=== PATIENT | male | born 1935 | race Caucasian/White ===

== ENCOUNTER 2017-03-14 08:00 | Outpatient (CLI) | payer MEDICARE, BC | END 2017-03-14 08:01 | disposition home or self-care (01) | LOC: BICMRI 08:00 | PROVIDERS: ATTEND Orthopaedic Surgery | DX: M25.512 Pain in left shoulder (principal); M25.511 Pain in right shoulder; S46.211A Strain of muscle, fascia and tendon of other parts of biceps, right arm, initial encounter; M75.101 Unspecified rotator cuff tear or rupture of right shoulder, not specified as traumatic; Z98.890 Other specified postprocedural states; M19.012 Primary osteoarthritis, left shoulder ==

== ENCOUNTER 2018-04-06 10:46 | Outpatient (CLI) | payer MEDICARE, BC ==
--- NOTE | 2018-04-06 13:50 | RAD ---
LUMBAR SPINE 4 VIEWS: HISTORY: M54.16, lumbar radiculopathy, low back pain. COMPARISON: 12/21/2015. FINDINGS: There is moderate levoscoliosis of the lumbar vertebral column. Significant anterolisthesis of L5 on S1 approximating 1.9 cm with bilateral pars defects. There is generalized disk-osteophytosis and se josephine facet arthrosis. No significant abnormal translation between flexion and extension. No evidenc e for acute fracture. Stable from prior study. IMPRESSION: Severe stable anterolisthesis of L5 on S1. Extensive spondylosis. Levoscoliosis. POS: OFF
== END 2018-04-06 10:47 | disposition home or self-care (01) ==
LOC: TBSIIMAG 10:46
PROVIDERS: ATTEND Neurological Surgery
DX: M47.26 Other spondylosis with radiculopathy, lumbar region (principal); M43.17 Spondylolisthesis, lumbosacral region; M41.9 Scoliosis, unspecified
CPT/HCPCS: 72110

== ENCOUNTER 2018-06-08 00:05 | Outpatient (CLI) | payer MEDICARE, BC ==
[2018-06-08 10:13] LABS: Hemoglobin 14.8 g/dL (14.0-18.0); Mean Corpuscular HGB CONC 32.6 g/dL (32.0-36.0); Mean Corpuscular Hemoglobin 32.5 pg (27.0-31.0); Mean Corpuscular Volume 99.7 fL (78.0-98.0); Mean Platelet Volume 6.7 fL (7.4-10.4); Platelet Count 221 thou/uL (130-400); RBC Distribution Width 12.1 % (11.5-14.5); Red Blood Cell (RBC) Count 4.54 mill/uL (4.70-6.10); White Blood Cell (WBC) Count 5.7 thou/uL (4.8-10.8)
[2018-06-08 10:19] LABS: INR-International Normal Ratio 1.1; PTT 31.1 SEC (22.9-36.1); Prothrombin Time 14.4 SEC (12.0-14.7)
[2018-06-08 10:31] LABS: Anion Gap 12 mmol/L (10-20); BUN (Urea Nitrogen) 16 mg/dL (8.4-25.7); Calc. Creatinine Clearance 0 mL/min (70-130); Calcium 9.7 mg/dL (7.8-10.44); Carbon Dioxide 30 mmol/L (23-31); Chloride 104 mmol/L (98-107); Estimated GFR-MDRD 81; Glucose 88 mg/dL (83-110); Potassium 4.7 mmol/L (3.5-5.1); Sodium 141 mmol/L (136-145)
== END 2018-06-08 00:06 | disposition home or self-care (01) ==
LOC: LABBT 00:05
PROVIDERS: ATTEND Internal Medicine Cardiovascular Disease
DX: Z01.812 Encounter for preprocedural laboratory examination (principal); I48.91 Unspecified atrial fibrillation
CPT/HCPCS: 80048; 85027; 85610; 85730

== ENCOUNTER 2018-06-15 07:03 | Day surgery (SDC) | payer MEDICARE, BC ==
[2018-06-08 09:20] VITALS: BMI 25.4
[2018-06-15] MEDS ORDERED: PROPOFOL 40 ML ONE (08:55)
--- NOTE | 2018-06-15 13:30 | ECHO ---
CARDIOLOGY PROCEDURE NOTE: Date: 06/15/18 PROCEDURE: Transesophageal echocardiogram. REASON FOR PROCEDURE: Mr. Neal is an 82-year-old gentleman with history of paroxysmal atrial fibrillation. Prior ablation in September 2012 and touchup ablation in April 2018 in the setting of a Watchman device placement. He is here for 6 weeks post implant GEMMA to evaluate the Watchman closure. PROCEDURE DETAILS: The patient received propofol from the anesthesia specialist. After adequate level of sedation achie ed, a standard transesophageal echocardiogram probe was placed into the esophagus without difficulty. The patient tolerated the procedure well. No complications noted. FINDINGS: Left atrium is mildly enlarged. Left atrial appendage is visualized with appropriately positioned Ty chman device in place. There is a small leak adjacent to the anterior surface of the Watchman device seen. There is some echo lucency behind the Watchman noted as well. One of two pulmonary veins were visualized well. Intraatrial septum free of defect. Mitral valve has trace to mild regurgitation only. Aortic valve has some thickening, but no stenosis. Aortic valve has mild to moderate regurgitation. Tricuspid valve has trace regurgitation. Pulmonic valve not well vis ualized. Pericardial space is without effusion. Left ventricle with normal systolic function and toshia nate size overall normal. No septal defects are seen in the atrium or ventricle. Visualized portion of the ascending aorta is somewhat dilated at 4.0 cm horizontal diameter. There is some adherent athero ma noted in the descending aorta. CONCLUSION: 1. Adequately positioned Watchman device but with a small leak, approximately 0.3 cm diameter, is se en. 2. Normal LV systolic function. 3. No pericardial effusion. 4. Mild to moderate aortic regurgitation. 5. Mild mitral regurgitation seen only. PLAN: Continue oral anticoagulant for the next 2 months at least. I would like to have him undergo a repeat GEMMA around that time and decide whether he can transfer back to aspirin and Plavix regimen for remai nder of the 6 months.
[2018-06-15] MEDS ORDERED: PROPOFOL 200 MG/20 ML VIAL ONE (15:23)
== END 2018-06-15 10:15 | disposition home or self-care (01) ==
LOC: CCL 07:03
PROVIDERS: ATTEND Internal Medicine Cardiovascular Disease
PROC: B246ZZ4 Ultrasonography of Right and Left Heart, Transesophageal (ICD-10-PCS; principal; 2018-06-15)
DX: I48.0 Paroxysmal atrial fibrillation (principal); I35.1 Nonrheumatic aortic (valve) insufficiency; I34.0 Nonrheumatic mitral (valve) insufficiency; I10 Essential (primary) hypertension; E78.5 Hyperlipidemia, unspecified; Z88.1 Allergy status to other antibiotic agents; Z79.01 Long term (current) use of anticoagulants; Z79.899 Other long term (current) drug therapy
CPT/HCPCS: 93312; J2704

== ENCOUNTER 2019-03-11 10:55 | Outpatient (CLI) | payer MEDICARE, BC ==
--- NOTE | 2019-03-11 11:21 | RAD ---
XR Lumbar Spine Min 4 View HISTORY: Low back pain. COMPARISON: 04/06/2018 study. FINDINGS: There is marked scoliotic change convex to the left. The bones appear slightly demineralize d. There is slight cupping to the endplates at the L2 and L3 levels. Marked disc narrowing at L5-S1 with spondylolisthesis is stable. There are marked degenerative facet changes of the lower lumbar spi ne and pars defect at L5-S1. The spondylolisthesis does not appear to significantly change between flexion and extension views. IMPRESSION: Scoliosis and arthritic changes spine. Essentially stable exam.
== END 2019-03-11 10:56 | disposition home or self-care (01) ==
LOC: BICRAD 10:55
PROVIDERS: ATTEND Neurological Surgery
DX: M54.5 Low back pain (principal); M41.9 Scoliosis, unspecified; M47.816 Spondylosis without myelopathy or radiculopathy, lumbar region
CPT/HCPCS: 72110

== ENCOUNTER 2019-04-19 10:37 | Outpatient (CLI) | payer MEDICARE, BC ==
--- NOTE | 2019-04-19 11:46 | MRI ---
MRI LUMBAR SPINE NONCONTRAST: HISTORY: Status post fall in 2016. Back pain. COMPARISON: None. FINDINGS: Heterogeneous marrow signal intensity of the lumbar vertebrae suggesting senescent change. There are type I and type II Modic changes at the T12-L1 disc space. There are bilateral pars defects at L5. Associated 1.2 cm of anterolisthesis of L5 upon S1. Visualized sacrum and iliac wings also demonstrat e heterogeneous T1 marrow signal intensity. There is appropriate signal intensity of the visualized paraspinal muscles and solid organs. Bilatera l parapelvic cysts are noted. Conus medullaris terminates at the mid L1 level. Beyond the type I Modic changes at T12-L1, no significant STIR hyperintensity. T12-L1:Severe loss of disc space height. Broad-based disc-osteophyte complex. Moderate central canal stenosis. Mild right and moderate to severe left neural foraminal narrowing. L1-L2:Adequate disc hydration. No significant posterior disc abnormality. Mild narrowing of both suba rticular zones secondary to disc material. Partial obscuration of bilateral traversing L4 nerve roots. Moderate right and moderate to severe left foraminal narrowing. L2-L3:Severe loss of disc space height. Broad-based disc bulge, ligament flavum thickening and facet hypertrophy result in mild central canal stenosis. Encroachment upon bilateral subarticular zones. There is mass effect without obscuration of bilateral traversing L3 nerve roots. Moderate to severe r ight and moderate left neural foraminal narrowing. L3-L4:Desiccation with moderate loss of disc space height. Broad-based disc bulge and central disc he rniation, ligament flavum thickening and facet hypertrophy result in mild central canal stenosis. Encroachment upon the bilateral subarticular zone with partial obscuration of the traversing bilatera l L4 nerve roots. There is fluid in the left facet joint. Moderate to severe right and moderate left neural foraminal narrowing. L4-L5:Adequate disc hydration without significant loss of disc space height. Broad-based disc bulge d oes make contact with the ventral thecal sac. Minimal encroachment upon bilateral subarticular zones without significant mass effect or obscuration of either traversing L5 nerve root. Moderate to severe right and moderate left foraminal narrowing predominantly due to ligamentum flavum thickening and facet hypertrophy. L5-S1:Severe loss of disc space height. Broad-based disc bulge does not cause any significant mass ef fect upon the thecal sac. Moderate to severe right and severe left foraminal narrowing predominantly due to spondylolisthesis. IMPRESSION: 1. Heterogeneous marrow signal intensity throughout the visualized vertebra suggesting senescent han ge. Marrow infiltrative process cannot be entirely excluded. Postcontrast imaging or bone scan if clinically warranted 2. Varying degrees of central canal stenosis and neural foraminal narrowing as detailed above. CODE T
== END 2019-04-19 10:38 | disposition home or self-care (01) ==
LOC: TBSIIMAG 10:37
PROVIDERS: ATTEND Neurological Surgery
DX: M43.16 Spondylolisthesis, lumbar region (principal); M48.061 Spinal stenosis, lumbar region without neurogenic claudication; R93.7 Abnormal findings on diagnostic imaging of other parts of musculoskeletal system; M48.07 Spinal stenosis, lumbosacral region
CPT/HCPCS: 72148

== ENCOUNTER → 2019-04-23 | Day surgery (SDC) | payer MEDICARE, BC ==
[2019-04-22 12:52] VITALS: BMI 25.4
[~2019-04-23] MED LIST: PROPOFOL 40 ML ONE
[2019-04-23 08:05] LABS: #Basophils 0.1 thou/uL (0.0-0.2); #Eosinphils 0.5 thou/uL (0.0-0.7); #Lymphocytes 1.7 thou/uL (1.20-3.40); #Monocytes 0.6 thou/uL (0.11-0.59); #Neutrophils 2.5 thou/uL (1.40-6.50); %Basophils 1.2 % (0.0-1.0); %Eosinophils 9.4 % (0.0-10.0); %Lymphocytes 31.1 % (21.0-51.0); %Monocytes 11.5 % (0.0-10.0); %Neutrophils 46.8 % (42.0-75.0); Hemoglobin 13.6 g/dL (14.0-18.0); Mean Corpuscular HGB CONC 33.3 g/dL (32.0-36.0); Mean Corpuscular Volume 99.2 fL (78.0-98.0); Mean Platelet Volume 6.7 fL (7.4-10.4); Platelet Count 215 thou/uL (130-400); RBC Distribution Width 12.1 % (11.5-14.5); Red Blood Cell (RBC) Count 4.12 mill/uL (4.70-6.10); White Blood Cell (WBC) Count 5.3 thou/uL (4.8-10.8)
[2019-04-23 08:10] LABS: PTT 30.8 SEC (22.9-36.1)
[2019-04-23 08:18] LABS: Anion Gap 15 mmol/L (10-20); BUN (Urea Nitrogen) 18 mg/dL (8.4-25.7); Calc. Creatinine Clearance 71 mL/min (70-130); Calcium 9.2 mg/dL (7.8-10.44); Carbon Dioxide 26 mmol/L (23-31); Chloride 105 mmol/L (98-107); Estimated GFR-MDRD 76; Glucose 82 mg/dL (83-110); Potassium 4.6 mmol/L (3.5-5.1); Sodium 141 mmol/L (136-145)
--- NOTE | 2019-04-24 16:16 | ECHO ---
DATE OF PROCEDURE: 04/23/19 REFERRING PHYSICIAN: Dr. Eric Flores; Dr. Domingo Gerardo REASON FOR PROCEDURE: The patient is an 83-year-old man with prior history of recurrent atrial arrhythmias status post pulmonary venous isolation procedure in September 2012 and April 2018 and more recently October 03, 2018. Had a Watchman device placed in April 2018 with minor leak which was cauterized in September 2018. He is still on anticoagulation therapy. Here to check for any residual leads. PROCEDURE: The patient received Propofol by Anesthesia specialist. After adequate level of sedation achieved, a standard transesophageal echocardiogram probe was passed into the esophagus without difficulty. Patient tolerated the procedure well, no complications noted. RESULTS: Left atrium is upper normal in size about 4.1 cm in horizontal diameter. The left atrial appendage well visualized contains an adequately seated and well sealed Watchman device. No residual flow detected and adequate opacification posterior to the device in the left atrium is seen. Four out of four pulmonary veins were seen without stenosis. The interatrial septum is without defect. Only mild mitral regurgitation and trace tricuspid regurgitation noted. The aortic valve has three leaflets with mild regurgitation only. Left ventricular systolic function is preserved without dilation or significant hypertrophy. Right sided chambers are normal in size. Pericardial space without effusion. The visualized portion of ascending and descending aorta without aneurysm, dissection and only minor atheroma. CONCLUSION: 1. An adequately seated and well sealed Watchman device without residual leak detected. 2. Upper limits normal left atrial size. 3. Mild mitral and tricuspid regurgitation. Mild aortic regurgitation. 4. Normal left ventricular systolic function. PLAN: consider stopping oral anticoagulants and continue aspirin. MTDD
== END ==
LOC: CCL 07:03
PROVIDERS: ATTEND Internal Medicine Cardiovascular Disease
PROC: B24BZZ4 Ultrasonography of Heart with Aorta, Transesophageal (ICD-10-PCS; principal; 2019-04-23)
DX: I48.91 Unspecified atrial fibrillation (principal); I08.1 Rheumatic disorders of both mitral and tricuspid valves; Z79.01 Long term (current) use of anticoagulants; Z79.899 Other long term (current) drug therapy; Z88.8 Allergy status to other drugs, medicaments and biological substances; Z95.818 Presence of other cardiac implants and grafts
CPT/HCPCS: 80048; 85025; 85610; 85730; 93005; 93010; 93312; J2704

== ENCOUNTER 2023-07-03 15:02 | Outpatient (CLI) | payer MEDICARE | END 2023-07-03 15:03 | disposition home or self-care (01) | LOC: BICCT 15:02 | PROVIDERS: ATTEND Urology | DX: N20.0 Calculus of kidney (principal); N21.0 Calculus in bladder; N40.1 Benign prostatic hyperplasia with lower urinary tract symptoms | CPT/HCPCS: 74176 ==

== ENCOUNTER 2023-08-26 13:35 | Outpatient (CLI) | payer MEDICARE ==
[2023-08-26 16:00] LABS: Bilirubin Neg (Negative); Blood, Urine 10 (Negative); Clarity Clear (Clear); Glucose, Urine (Dipstick) Normal (Negative); Ketone, Urine Negative (Negative); Leukocyte 100 (Negative); Nitrite Negative (Negative); Protein, Urine (Dipstick) Negative (Neg-Trace); Specific Gravity, Urine 1.015 (1.005-1.030); Urobilinogen Normal mg/dL (Less than 2)
[2023-08-26 16:03] LABS: Hematocrit 40.9 % (38.8-50.0); Hemoglobin 13.7 g/dL (13.5-17.5); Mean Corpuscular HGB CONC 33.5 g/dL (32.0-36.0); Mean Corpuscular Hemoglobin 31.9 pg (27.0-33.0); Mean Corpuscular Volume 95.1 fL (81.2-95.1); Platelet Count 211 10x3/uL (150-450); RBC Distribution Width 14.2 % (11.5-14.5); White Blood Cell (WBC) Count 8.2 10x3/uL (3.5-10.5)
[2023-08-26 16:08] LABS: Bacteria/HPF Rare-Few HPF (None Seen); RBC/HPF 0-3 HPF (0-3); Squamous Epithelial 0-3 HPF (0-3)
[2023-08-26 16:11] LABS: PTT 27.1 sec (22.0-33.0); Prothrombin Time 10.5 sec (9.5-12.1)
[2023-08-26 16:23] LABS: Anion Gap 16 mmol/L (10-20); BUN (Urea Nitrogen) 18 mg/dL (8.4-25.7); Calc. Creatinine Clearance 0 mL/min (70-130); Calcium 9.6 mg/dL (7.8-10.44); Carbon Dioxide 25 mmol/L (23-31); Chloride 105 mmol/L (98-107); Estimated GFR 84; Glucose 87 mg/dL (83-110); Potassium 4.5 mmol/L (3.5-5.1); Sodium 141 mmol/L (136-145)
== END 2023-08-26 13:36 | disposition home or self-care (01) ==
LOC: LABBT 13:35
PROVIDERS: ATTEND Urology
DX: Z01.818 Encounter for other preprocedural examination (principal); C67.4 Malignant neoplasm of posterior wall of bladder; N40.1 Benign prostatic hyperplasia with lower urinary tract symptoms; M1A.9XX0 Chronic gout, unspecified, without tophus (tophi); I10 Essential (primary) hypertension; I48.0 Paroxysmal atrial fibrillation; M99.83 Other biomechanical lesions of lumbar region; G63 Polyneuropathy in diseases classified elsewhere; N20.0 Calculus of kidney; N21.0 Calculus in bladder; N52.9 Male erectile dysfunction, unspecified; R39.12 Poor urinary stream; R54 Age-related physical debility; Z98.890 Other specified postprocedural states; Z79.01 Long term (current) use of anticoagulants
CPT/HCPCS: 80048; 81001; 85027; 85610; 85730; 87086; 93005; 93010

== ENCOUNTER → 2023-09-10 | Day surgery (SDC) | payer MEDICARE ==
[2023-08-26 14:23] VITALS: BMI 25.7
[~2023-09-10] MED LIST changes: +Dexamethasone 4 mg/ml Vial ONE; +LevoFLOXacin D5W 500 mg (100 mL) BAG ONE; +Lidocaine 2% PF 5 ML VIAL ONE; +Ondansetron PF 4 MG/2 ML Vial ONE; +Oxybutynin 5 MG TAB ONE; +PHENYLEPHRINE-NS 100 MCG/ML 10 ML SYRINGE ONE; +PROPOFOL 20 ML ONE; -PROPOFOL 40 ML ONE; +Phenazopyridine HCl 100 MG TAB ONE; +Rocuronium Bromide 10 MG/ML (10ML VIAL) ONE; +SUGAMMADEX SODIUM 200 MG/2 ML VIAL ONE; +ePHEDrine Sulfate 50 MG/10 ML VIAL ONE; +fentaNYL PF 100 MCG/2 ML SYRINGE ONE
== END ==
LOC: SDC 06:12
PROVIDERS: ATTEND Urology
PROC: 0TBB8ZZ Excision of Bladder, Via Natural or Artificial Opening Endoscopic (ICD-10-PCS; principal; 2023-09-10)
DX: C67.4 Malignant neoplasm of posterior wall of bladder (principal); N40.1 Benign prostatic hyperplasia with lower urinary tract symptoms; I48.0 Paroxysmal atrial fibrillation; E78.5 Hyperlipidemia, unspecified; I10 Essential (primary) hypertension; Z79.82 Long term (current) use of aspirin; Z79.899 Other long term (current) drug therapy; Z87.891 Personal history of nicotine dependence; Z88.1 Allergy status to other antibiotic agents
CPT/HCPCS: 52240; 86850 ×2; 86900 ×2; 86901 ×2; A4311; A4333; J1100; J1956; J2001; J2405; J2704; 88305